=== PATIENT | male | born 1990 | race Two or more races ===

== ENCOUNTER 2022-05-21 20:53 | Emergency (ER) | payer OTHER ==
[~2022-05-21] VITALS: Ht 177.8 cm; Wt 81.6 kg
[2022-05-21 21:05] VITALS: BP 125/86
[2022-05-21] MEDS ORDERED: methylPREDNISolone ACETATE 80 MG/ML VIAL ONE (21:42)
[2022-05-21] MEDS ORDERED: COLC0.6C3 PO (21:44)
[2022-05-21] MEDS ORDERED: PRED50TA PO (21:44)
[2022-05-21] MEDS ORDERED: methylPREDNISolone ACETATE 80 MG/ML VIAL IM ONE (22:00)
== END 2022-05-21 22:30 | disposition home or self-care (01) ==
LOC: ER 20:58
DX: M10.9 Gout, unspecified (principal); F17.200 Nicotine dependence, unspecified, uncomplicated; Z79.899 Other long term (current) drug therapy
CPT/HCPCS: 99283; 96372; J1040

== ENCOUNTER 2022-07-20 09:57 | Emergency (ER) | payer OTHER ==
[~2022-07-20] VITALS: Ht 180.3 cm; Wt 113.4 kg
[~2022-07-20 09:57] MED LIST: COLC0.6C3 PO; PRED50TA PO
[2022-07-20 10:20] VITALS: BP 134/90
[2022-07-20] MEDS ORDERED: COLC0.6C3 PO (10:32)
[2022-07-20] MEDS ORDERED: INDO-12 PO (10:32)
[2022-07-20] MEDS ORDERED: PRED50TA PO (10:32)
[2022-07-20] MEDS ORDERED: methylPREDNISolone SOD SUCC 125 MG/2ML VIAL ONE (10:46)
[2022-07-20] MEDS ORDERED: methylPREDNISolone SOD SUCC 125 MG/2ML VIAL IM ONE (11:00)
== END 2022-07-20 10:52 | disposition home or self-care (01) ==
LOC: ER 10:02
DX: M10.9 Gout, unspecified (principal); Z79.899 Other long term (current) drug therapy
CPT/HCPCS: 99283; 96372; J2930

== ENCOUNTER 2022-10-19 11:36 | Emergency (ER) | payer OTHER ==
[~2022-10-19] VITALS: Ht 180.3 cm; Wt 117.9 kg
[~2022-10-19 11:36] MED LIST changes: +INDO-12 PO
[2022-10-19 12:00] VITALS: BP 154/88
[2022-10-19] MEDS ORDERED: KETOROLAC TROMETHAMINE INJ 60 MG/2 ML VIAL IM ONE ×2 (12:00→12:54)
[2022-10-19] MEDS ORDERED: CYCLOBENZAPRINE 10 MG TABLET PO ONE (12:00)
[2022-10-19] MEDS ORDERED: CYCLOBENZAPRINE 10 MG TABLET ONE (12:54)
[2022-10-19] MEDS ORDERED: CYCL5TAB PO (13:36)
[2022-10-19] MEDS ORDERED: KETO10TA2 PO (13:36)
== END 2022-10-19 14:53 | disposition home or self-care (01) ==
LOC: ER 11:49
DX: M54.50 Low back pain, unspecified (principal); F17.200 Nicotine dependence, unspecified, uncomplicated; Z79.899 Other long term (current) drug therapy
CPT/HCPCS: 99283; 96372; J1885